=== PATIENT | male | born 2000 ===

== ENCOUNTER → 2021-02-05 | Outpatient (REF) ==
--- NOTE | 2021-02-05 09:58 | REP ---
INDICATION: BACK PAIN COMPARISON: None. TECHNIQUE: AP, lateral, coned-down views of the lumbar spine. FINDINGS: Three views of the lumbosacral spine demonstrate satisfactory alignment and lordosis without acute fracture / compression injury or subluxation. Disc spaces appear relatively equal throughout the lumbar spine. IMPRESSION: 1. No acute fracture / compression injury or subluxation. 2. No significant degenerative changes are appreciated. If the patient remains symptomatic consider CT or MRI for further investigation. <Electronically signed by Roberto Pino > 02/05/21 0990
== END ==
LOC: M PLAIMG 09:03
PROVIDERS: ATTEND Internal Medicine
DX: M54.5 Low back pain (principal)